=== PATIENT | male | born 1990 | race Caucasian/White ===

== ENCOUNTER 2016-12-31 17:09 | Emergency (ER) | payer SELFPAY ==
--- NOTE | 2016-12-31 17:27 | ER Document Report ---
ED General - General Stated Complaint: PSYCH EVAL Time Seen by Provider: 12/31/16 17:19 Notes: Patient is a 26-year-old male comes emergency department for chief complaint of depression. He states that he left the house earlier today after becoming upset because of financial issues, he states his called the police, he states the police found him at [place] [employer], he states he went there and he was sprain. He states they did talk to him and they advised to come to the hospital to be evaluated. He states they followed him in their police car although he drove his car here. He states he is medicated for depression and he sees a psychiatrist, he states that he has been compliant with his medications. He denies ever attempting suicide, he denies suicidal ideations, he states that he just felt very stressed at the time. He states he feels somewhat better now. He denies homicidal ideations. He denies ever being hospitalized for psychiatric issues. He denies any sick symptoms. He denies any other medical history. Past Medical History - General Information source: Patient - Social History Smoking Status: Never Smoker Drug Abuse: None Lives with: Spouse/Significant other Family History: Reviewed & Not Pertinent Psychiatric Medical History: Reports: Hx Depression Surgical Hx: Negative - Immunizations Hx Diphtheria, Pertussis, Tetanus Vaccination: Yes Review of Systems - Review of Systems Constitutional: No symptoms reported EENT: No symptoms reported Cardiovascular: No symptoms reported Respiratory: No symptoms reported Gastrointestinal: No symptoms reported Genitourinary: No symptoms reported Male Genitourinary: No symptoms reported Musculoskeletal: No symptoms reported Skin: No symptoms reported Hematologic/Lymphatic: No symptoms reported Neurological/Psychological: See HPI Physical Exam - Vital signs Interpretation: Normal - General General appearance: Appears well, Alert In distress: None - HEENT Head: Normocephalic, Atraumatic Eyes: Normal Pupils: PERRL - Respiratory Respiratory status: No respiratory distress Chest status: Nontender Breath sounds: Normal Chest palpation: Normal - Cardiovascular Rhythm: Regular Heart sounds: Normal auscultation Murmur: No - Abdominal Inspection: Normal Distension: No distension Bowel sounds: Normal Tenderness: Nontender Organomegaly: No organomegaly - Back Back: Normal, Nontender - Extremities General upper extremity: Normal inspection, Nontender, Normal color, Normal ROM , Normal temperature General lower extremity: Normal inspection, Nontender, Normal color, Normal ROM , Normal temperature, Normal weight bearing. No: Elmer's sign - Neurological Neuro grossly intact: Yes Cognition: Normal Orientation: AAOx4 [place] Coma Scale Eye Opening: Spontaneous [place] Coma Scale Verbal: Oriented [place] Coma Scale Motor: Obeys Commands [place] Coma Scale Total: 15 Speech: Normal Motor strength normal: LUE, RUE, LLE, RLE Sensory: Normal - Psychological Associated symptoms: Other - Patient makes poor eye contact and he becomes slightly shaky when he is addressed, I noticed that from a distance when he has not been talked to he becomes relaxed. He does answer questions appropriately, he is oriented, he does not appear to be responding to internal stimuli, he is cooperative. - Skin Skin Temperature: Warm Skin Moisture: Dry Skin Color: Normal Course - Re-evaluation Re-evalutation: Patient is cooperative, calm, he becomes nervous and makes poor eye contact when addressed but when I asked him about this he states this is just because he is nervous. He states he always does this. He denies SI or HI. He is alert and oriented. He does not report any concerning history, he gives me a reasonable narrative. I asked patient if he goes home if he will harm himself or anyone else, he states definitely not, he states that he is embarrassed about the situation and he is ready to leave. He states he wants to get back to his significant other because she is concerned about him. He states that he will call his psychiatrist tomorrow for follow-up but he is requesting to leave at this time. No indication for IVC. Patient discharged with close follow-up recommendations and informed him he should return if something is not right. Patient states understanding and agreement. Discharge - Discharge Clinical Impression: Psychosocial stressors, Anxiety Condition: Stable Disposition: HOME, SELF-CARE Additional Instructions: Please call your psychiatrist tomorrow to perform a close follow-up. Continue your current medications. Return to the emergency department immediately if something is not right.
[2016-12-31 17:55] VITALS: BP 90/57
== END 2016-12-31 17:54 | disposition home or self-care (01) ==
LOC: ER 17:09
DX: F41.9 Anxiety disorder, unspecified (principal); Z73.3 Stress, not elsewhere classified; F32.9 Major depressive disorder, single episode, unspecified; Z79.899 Other long term (current) drug therapy
CPT/HCPCS: 99284